=== PATIENT | female | born 1980 | race Two or more races ===

== ENCOUNTER 2018-02-05 18:53 | Emergency (ER) | payer OTHER ==
[~2018-02-05] VITALS: Ht 152.4 cm; Wt 153.3 kg
[~2018-02-05 18:53] MED LIST: COZAAR50 MG; COZAAR50 MG PO; SINGULAIR 10MG10 MG; SINGULAIR 10MG10 MG PO; SYNTHROID50 MCG
[2018-02-05] MEDS ORDERED: METFORMIN HCL850 MG (19:04)
== END 2018-02-05 21:40 | disposition home or self-care (01) ==
LOC: ER 18:53
DX: J45.998 Other asthma (principal)

== ENCOUNTER 2019-03-16 17:24 | Emergency (ER) | payer OTHER ==
[~2019-03-16] VITALS: Ht 152.4 cm; Wt 152.0 kg
[~2019-03-16 17:24] MED LIST changes: +METFORMIN HCL850 MG
[2019-03-16] MEDS ORDERED: SYNTHROID150 MCG PO (18:11)
== END 2019-03-16 22:11 | disposition home or self-care (01) ==
LOC: ER 17:24
DX: J45.998 Other asthma (principal)

== ENCOUNTER 2021-03-28 21:03 | Emergency (ER) | payer OTHER ==
[~2021-03-28] VITALS: Ht 152.4 cm; Wt 145.1 kg
[~2021-03-28 21:03] MED LIST changes: +SYNTHROID150 MCG PO
== END 2021-03-28 23:11 | disposition home or self-care (01) ==
LOC: ER 21:03
DX: I16.1 Hypertensive emergency (principal); I10 Essential (primary) hypertension; F41.8 Other specified anxiety disorders

== ENCOUNTER 2022-10-06 12:23 | Emergency (ER) | payer OTHER ==
[~2022-10-06] VITALS: Ht 152.4 cm; Wt 131.5 kg
[2022-10-06] MEDS ORDERED: MOBIC7.5 MG PO (15:00)
[2022-10-06] MEDS ORDERED: NORFLEX100MG PO (15:00)
== END 2022-10-06 15:08 | disposition home or self-care (01) ==
LOC: ER 12:23
DX: M54.9 Dorsalgia, unspecified (principal); R10.84 Generalized abdominal pain

== ENCOUNTER 2024-04-07 08:43 | Emergency (ER) | payer OTHER ==
[~2024-04-07] VITALS: Ht 152.4 cm; Wt 149.7 kg
[~2024-04-07 08:43] MED LIST changes: +MOBIC7.5 MG PO; +NORFLEX100MG PO
[2024-04-07] MEDS ORDERED: LEVALBUTEROL HCL 1.25 MG/3 ML SOLUTION IH ONE (09:15)
[2024-04-07] MEDS ORDERED: METHYLPREDNISOLONE SOD SUCC 40 MG VIAL IM ONE (09:15)
[2024-04-07] MEDS ORDERED: IPRATROPIUM BROMIDE 0.5 MG/2.5 ML AMPUL.NEB IH ONE (09:15)
[2024-04-07] MEDS ORDERED: BENZONATATE 200 MG CAPSULE PO ONE (09:15)
[2024-04-07] MEDS ORDERED: METHYLPREDNISOLONE SOD SUCC 40 MG VIAL ONE (09:19)
[2024-04-07 09:57] LABS: HEMATOCRIT 38.1 % (36.0-45.00); HEMOGLOBIN 12.5 g/dL (12.0-15.00); MEAN CELL VOLUME 77.4 fL (80.00-100.00); MEAN CORPUSCULAR HEMOGLOBIN 25.5 pg (27.00-32.0); MEAN CORPUSCULAR HGB CONC 32.9 g/dl (32.0-36.0); PLATELET COUNT 203 K/uL (150-450); RED BLOOD COUNT 4.93 M/uL (4.00-6.00); RED CELL DISTRIBUTION WIDTH 14.9 % (11.5-14.5)
[2024-04-07] MEDS ORDERED: LEVALBUTER0.63 MG/3 IH (10:55)
[2024-04-07] MEDS ORDERED: OSEL75CA PO (10:55)
[2024-04-07] MEDS ORDERED: BENZONATATE200 M1 PO (10:55)
[2024-04-07] MEDS ORDERED: PEPCID AC20 MG PO (10:55)
[2024-04-07] MEDS ORDERED: SINGULAIR10 MG PO (10:55)
== END 2024-04-07 11:12 | disposition home or self-care (01) ==
LOC: ER 08:45
PROVIDERS: General Practice
DX: J10.1 Influenza due to other identified influenza virus with other respiratory manifestations (principal); Z20.822 Contact with and (suspected) exposure to COVID-19; I10 Essential (primary) hypertension; E11.9 Type 2 diabetes mellitus without complications; Z79.84 Long term (current) use of oral hypoglycemic drugs; E03.9 Hypothyroidism, unspecified; Z87.09 Personal history of other diseases of the respiratory system